=== PATIENT | male | born 1950 | race Caucasian/White ===

== ENCOUNTER → 2022-07-19 14:08 | Outpatient (BNVA) | payer OTHER, SELFPAY | PROVIDERS: PCP Nurse Practitioner Family; Visit Provider Internal Medicine Endocrinology, Diabetes & Metabolism | DX: R79.89 Other specified abnormal findings of blood chemistry (principal) ==

== ENCOUNTER 2022-10-13 11:19 | Outpatient (REF) | payer MEDICARE, SELFPAY ==
[2022-10-13 13:35] LABS: Free T4 (Free Thyroxine) 1.21 ng/dL (0.71-1.85); Thyroid Stimulating Hormone 0.11 uIU/mL (0.32-4.0)
[2022-10-15 08:53] LABS: Triiodothyronine T3 Free 3.5 pg/mL (2.3-4.2)
== END 2022-10-13 11:20 | disposition home or self-care (01) ==
LOC: HO.LAB 11:19
PROVIDERS: Visit Provider Internal Medicine Endocrinology, Diabetes & Metabolism
DX: R94.6 Abnormal results of thyroid function studies (principal)
CPT/HCPCS: 36415; 84439; 84443; 84481

== ENCOUNTER → 2022-10-18 13:37 | Outpatient (BNVA) | payer MEDICARE, SELFPAY | PROVIDERS: PCP Nurse Practitioner Family; Visit Provider Internal Medicine Endocrinology, Diabetes & Metabolism | DX: R79.89 Other specified abnormal findings of blood chemistry (principal) | CPT/HCPCS: 99212 ==

== ENCOUNTER → 2022-11-10 09:28 | Outpatient (REF) | payer MEDICARE, SELFPAY ==
--- NOTE | ~2022-11-10 | NM_ITS ---
EXAMINATION: THYROID UPTAKE AND SCAN CLINICAL INFORMATION: Abnormally low TSH. The patient's TSH level was 0.11 mIU/L on 10/13/2022. COMPARISON: No previous thyroid imaging studies are available for comparison. TECHNIQUE: Following the oral administration of 292 microcuries of I-123 sodium iodide, thyroid uptake was performed and expressed as a percentage of the administrated dose. Gamma scintillation camera images of the thyroid in the anterior and right and left anterior oblique views were obtained using a pinhole collimator following the administration of 10 mCi Tc-99m pertechnetate. FINDINGS: The uptake is 4.2% at 4 hours and 17.0% at 24 hours (Normal radioiodine uptake at 24 hours is 10% to 30%). The radioiodine uptake is normal. The radiopertechnetate thyroid scintigram demonstrates the thyroid gland to be normal in size, shape, and position. There is homogeneous distribution of activity within the the gland with no focal abnormalities noted. The trapping function appears normal. A single anterior radioiodine image obtained at the time of the 24-hour uptake measurement is similar to the radio pertechnetate image. NM/NM thyroid w uptake IMPRESSION: Normal radioiodine uptake. Normal thyroid scan.
== END ==
LOC: HO.NUCMED 09:28
PROVIDERS: PCP Nurse Practitioner Family; Visit Provider Internal Medicine Endocrinology, Diabetes & Metabolism
DX: R79.89 Other specified abnormal findings of blood chemistry (principal)
CPT/HCPCS: 78014; A9512; A9516

== ENCOUNTER 2022-12-05 09:53 | Outpatient (REF) | payer MEDICARE, SELFPAY ==
--- NOTE | ~2022-12-05 | US_ITS ---
EXAMINATION: US THYROID CLINICAL INFORMATION: Elevated TSH. COMPARISON: None available. TECHNIQUE: Linear transducer grayscale and color Doppler examination with attention to the region of the thyroid. FINDINGS: SIZE: Measurements of the thyroid lobes and nodules are given in sagittal, anteroposterior and transverse dimensions respectively. Right Thyroid Lobe: 5.8 x 1.6 x 2.3 cm, volume 11.2 mL. Parenchyma: The gland echotexture is homogeneous. Thyroid vascularity is normal. Left Thyroid Lobe: 5.8 x 1.3 x 1.8 cm, volume 7.1 mL. Parenchyma: The gland echotexture is homogeneous. Thyroid vascularity is normal. Isthmus: 0.2 cm in maximum AP dimension. Estimated total number of nodules greater than or equal to 1 cm: 0. [employer] Tank [employer]ic nodules are described as follows: 1. Location: Left medial midpole. Size: 0.6 x 0.3 x 0.4 cm, volume 0.04 mL. Nodule characteristics: Composition: Spongiform (0). Echogenicity: 0 Shape: 0 Margins: 0 Echogenic Foci: 0 ACR TI-RADS total points: 0 ACR TI-RADS category: 1 2. Location: Right medial midpole. Size: 0.4 x 0.2 x 0.3 cm, volume 0.01 mL. Nodule characteristics: Composition: Spongiform (0). Echogenicity: 0 Shape: 0 Margins: 0 Echogenic Foci: 0 ACR TI-RADS total points: 0 ACR TI-RADS category: 1 NODES: No lymphadenopathy is seen in the tissue surrounding the thyroid gland. US/US thyroid IMPRESSION: No further routine follow-up is needed. ACR TI-RADS RECOMMENDATION REFERENCE: Ultrasound-guided fine-needle aspiration, followup ultrasound, no further follow up. * TR1 (0 point) and TR2 (2 points): No FNA or follow up. * TR3 (3 points): FNA if more than or equal to 2.5 cm in maximum dimension, followup ultrasound in 1, 3 and 5 years if 1.5 to 2.4 cm in maximum dimension. * TR4 (4-6 points): FNA if more than or equal to 1.5 cm in maximum dimension, followup ultrasound in 1, 2, 3 and 5 years if 1 to 1.4 cm in maximum dimension. * TR5 (more than or equal to 7 points): FNA if more than or equal to 1 cm in maximum dimension, followup ultrasound every year for 5 years if 0.5 to 0.9 cm in maximum dimension. * TR3, TR4 or TR5 nodules that are below the size threshold for followup receive no follow up.
[2022-12-05 12:07] LABS: Free T4 (Free Thyroxine) 0.94 ng/dL (0.71-1.85); Thyroid Stimulating Hormone 0.23 uIU/mL (0.32-4.0)
[2022-12-06 05:38] LABS: Triiodothyronine T3 Free 3.4 pg/mL (2.3-4.2)
== END 2022-12-05 09:54 | disposition home or self-care (01) ==
LOC: HO.HMGCX 09:53
PROVIDERS: PCP Nurse Practitioner Family; Visit Provider Internal Medicine Endocrinology, Diabetes & Metabolism
DX: R79.89 Other specified abnormal findings of blood chemistry (principal); R94.6 Abnormal results of thyroid function studies
CPT/HCPCS: 36415; 76536; 84439; 84443; 84481

== ENCOUNTER 2023-01-17 07:56 | Outpatient (AMB) | payer MEDICARE, SELFPAY ==
[2023-01-17 07:58] VITALS: BP 115/84; PULSE 62; BMI 24.2
--- NOTE | 2023-01-17 07:58 | A.OFFVIS_ITS ---
Intake Vital Signs 01/17/23 07:58 Height 6 ft Weight 178 lb 9.191 oz BMI 24.2 BP 115/84 Blood Pressure Location Rt brachial Position Sitting Pulse 62 Pulse Source Pulse Oximeter Intake Visit Reasons: abnormal TSH Intake Note: Patient presents today for a follow-up on Abnormal TSH. Pulp Cooker Required: No Accompanied by: Significant Other Allergies No Known Allergies Allergy (Verified 01/17/23 07:58) HPI HPI Comments History of Present Illness Details 72 YO F with who is seen in consultation for suppreseed TSH at the request of PCP. Currently denies any dysphagia or hoarseness of voice. Denies sensation of swelling in the neck or difficulty breathing while lying flat. Denies any tenderness in the neck. Denies any palpitations, tremors, weight loss, frequent bowel movements. Denies any ocular complaints, blurred or double vision. Denies hair loss, dry skin, heat or cold intolerance, weight gain, confusion. Denies any history of head or neck irradiation. Denies any family history of thyroid cancer or thyroid problems . Had biopsy of nodules in the past. No use of kelp or seaweed or use of biotin Thyroid US: Labs:TSH=0.2 on 03/24/22 Radioactive iodine uptake and scan showed normal uptake and scan. Antibodies were negative for Graves. Thyroid ultrasound showed small subcentimeter nodule. TSH is still suppressed with slightly increased from [facility] Medical History Abnormal TSH Surgical History Hx of appendectomy Hx of hernia repair Family History Father Cancer Mother Stroke Social History Household Members: Spouse and Family Household Members Other:: grand child Alcohol intake: current Alcohol intake frequency: a few times a month Alcohol type: hard liquor Patient Tobacco Use Status: Never used Tobacco Physical Exam Vital Signs: Last Vital Signs Pulse 62 01/17/23 07:58 BP 115/84 01/17/23 07:58 BMI result Body Mass Index 24.2 HEENT reveals absence of lid lag , stare or proptosis or eyebrow loss. Thyroid gland measure 15 gms . No nodules or tenderness palpated. There is no cervical adenopathy palpated. Lungs CTA. Heart S1, S2 Reg R/R -M/R/G. Abdominal exam benign. Skin exam reveals absence of dryness or thyroid dermopathy or vitiligo. Nail exam reveals absence of thyroid acropachy or oncholysis. Neurologic exam reveals 2+ reflexes . Muscle Strength is 5/5 proximally. There are no tremors in upper extremities. Assessment & Plan Assessment & Plan (1) Abnormal TSH: Code(s): R79.89 - Other specified abnormal findings of blood chemistry Plan: This is 72-year-old white male with a history of mildly suppressed TSH. 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 TSH is only slightly suppressed and there is a very low risk for cardiac or bone sequela Plan is to repeat thyroid function studies. If TSH is > 0.1, patient can follow up with primary care provider if suppresses to< 0.1, patient returned back to endocrinology for discussion treatment options Orders: Orders Triiodothyronine T3 Free Today R7. - Other specified abnormal findings of blood chemistry Free T4 (Free Thyroxine) Today R7. - Other specified abnormal findings of blood chemistry Thyroid Stimulating Hormone Today R7. - Other specified abnormal findings of blood chemistry Coding Level of Care Code Est Pt Level 3 (69708) Diagnoses Abnormal TSH R79.89
== END 2023-01-17 08:11 | disposition home or self-care (01) ==
PROVIDERS: PCP Nurse Practitioner Family; Visit Provider Internal Medicine Endocrinology, Diabetes & Metabolism
DX: R79.89 Other specified abnormal findings of blood chemistry (principal)
CPT/HCPCS: 99213

== ENCOUNTER 2023-01-17 07:56 | Outpatient (REF) | payer MEDICARE, SELFPAY ==
[2023-01-17 09:58] LABS: Free T4 (Free Thyroxine) 0.88 ng/dL (0.71-1.85); Thyroid Stimulating Hormone 0.34 uIU/mL (0.32-4.0)
[2023-01-18 04:03] LABS: Triiodothyronine T3 Free 3.3 pg/mL (2.3-4.2)
== END 2023-01-17 07:57 | disposition home or self-care (01) ==
LOC: HO.LAB 07:56
PROVIDERS: PCP Nurse Practitioner Family; Visit Provider Internal Medicine Endocrinology, Diabetes & Metabolism
DX: R94.6 Abnormal results of thyroid function studies (principal)
CPT/HCPCS: 36415; 84439; 84443; 84481; 99212